=== PATIENT | female | born 1945 | race Caucasian/White ===

== ENCOUNTER → 2019-06-19 10:34 | Outpatient (CLI) | payer MEDICARE, SELFPAY ==
--- NOTE | ~2019-06-19 | XR_ITS ---
EXAMINATION: XR wrist LT min 3V DATE: 06/19/2019 10:51 INDICATION: Left wrist osteoarthritis. TECHNIQUE: 4 views of left wrist were obtained. COMPARISON: None. FINDINGS: Bone alignment is normal. No fracture. There is severe osteoarthritis of triscaphe joint an d moderate osteoarthritis of first carpometacarpal joint. There is severe osteoarthritis of lunate-ca pitate joint and scaphoid-capitate joint. Osteopenia is noted. IMPRESSION: 1. Polyarticular osteoarthritis. Reviewed, dictated and finalized at location A. 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
--- NOTE | ~2019-06-19 | XR_ITS ---
EXAMINATION: XR wrist RT min 3V DATE: 06/19/2019 10:52 INDICATION: Right wrist osteoarthritis. TECHNIQUE: 4 views of right wrist were obtained. COMPARISON: None. FINDINGS: Bone alignment is normal. No fracture. There is diffuse osteopenia. There is severe osteoar thritis of radiolunate joint, lunate-capitate joint, and lunate-hamate joint. There is moderate osteo arthritis of triscaphe joint and mild osteoarthritis of first carpometacarpal joint and first metacar pophalangeal joint. IMPRESSION: 1. Polyarticular osteoarthritis. Reviewed, dictated and finalized at location A. LOGY SPECIALIST
== END ==
PROVIDERS: PCP Internal Medicine; Visit Provider Plastic Surgery
DX: M19.031 Primary osteoarthritis, right wrist (principal); M19.032 Primary osteoarthritis, left wrist
CPT/HCPCS: 73110

== ENCOUNTER 2019-07-04 09:52 | Outpatient (CLI) | payer MEDICARE, SELFPAY ==
--- NOTE | ~2019-07-04 | XR_ITS ---
EXAMINATION: XR md joint inject/asp w image DATE: 07/04/2019 11:05 INDICATION: Osteoarthritis at the right wrist and carpus presenting with pain. TECHNIQUE: A time-out was performed to verify the patient's name, date of , and procedure to b e performed. The procedure including the risks, benefits, and alternatives was discussed with the pat ient. Risks discussed included bleeding and infection. The patient understood the risks and agreed to proceed. The skin overlying the dorsal aspect of the right wrist joint was prepped and draped in [facility] sterile fashion. Anesthetic was administered with 1% lidocaine subcutaneously. A 22 G needle wa s advanced under fluoroscopic guidance into the widened scapholunate articulation. Injection of 0.4 mL of Omnipaque 240 confirmed intra-articular position of the needle with contrast extending into bot h the wrist and mid carpal joint spaces. Subsequently, injectate consisting of 2 mL of 6 mg/mL betam ethasone for a total dosage of 12 mg of methadone was instilled. Washout of contrast was seen confirm ing intra-articular administration. The needle was removed and the entry site was cleaned and dressed . There were no immediate complications. Fluoroscopy exposure time was 0.3 minutes. The total number of images was 2. FINDINGS: Real-time fluoroscopy demonstrates the needle in the scapholunate articulation of the midca rpal joint with contrast extending into both the wrist and mid carpal joint spaces. Final image demon strates washout of now dilute contrast in both joint spaces along with widening of the joint spaces. Patient's pain prior to procedure:10/10. Patient's pain following the procedure: 8/10. IMPRESSION: 1. Right wrist injection of local anesthetic and steroid into the communicating right wrist and mid c arpal joint spaces. 2. Scapholunate advanced collapse (SLAC) wrist. Reviewed, dictated and finalized at location A. ON WARDEN IMPRESSION: 1. Right wrist injection of local anesthetic and steroid into the communicating right wrist and mid carpal joint spaces. 2. Scapholunate advanced collapse (SLAC) wrist.
== END 2019-07-04 09:53 | disposition home or self-care (01) ==
LOC: ANHIMG 09:53
PROVIDERS: PCP Internal Medicine; Visit Provider Plastic Surgery
DX: M19.031 Primary osteoarthritis, right wrist (principal)
CPT/HCPCS: 20605; 77002; J0702; Q9966

== ENCOUNTER 2019-10-24 00:17 | Outpatient (CLI) | payer MEDICARE, SELFPAY ==
[2019-10-24 18:58] LABS: SARS-CoV-2 RNA PCR Negative
== END 2019-10-24 00:18 | disposition home or self-care (01) ==
LOC: ANHCOVIDDT 00:17
PROVIDERS: Visit Provider Plastic Surgery
DX: Z01.812 Encounter for preprocedural laboratory examination (principal); Z20.828 Contact with and (suspected) exposure to other viral communicable diseases
CPT/HCPCS: 87635; C9803; U0003

== ENCOUNTER 2019-10-26 00:18 | Day surgery (SDC) | payer MEDICARE, SELFPAY ==
[2019-07-21 13:40] VITALS: BMI 21.2
--- NOTE | 2019-07-31 20:06 | HP_ITS ---
DATE OF SERVICE: 08/02/2019 PREOPERATIVE DIAGNOSIS: Left cubital tunnel syndrome. HISTORY: The patient has been followed since October of 2018 with variety of hand ailments. She has had some injections for 1st dorsal compartment and 1st CMC joint osteoarthritis and she has had some therapy at [facility]. On her 07/07/2019 visit, we elected to proceed with left cubital tunnel release. Her primary complaints on the last visit were that she had trouble doing daily tasks due to compression neuropathy. A nerve conduction test suggests that this could be carpal tunnel syndrome and possibly cubital tunnel syndrome and we are hoping today to correct a few more of her long-standing problems in her left upper extremity. ALLERGIES: ALENDRONATE, CIPROFLOXACIN, CODEINE, PROCAINE, SIMVASTATIN. CURRENT MEDICATIONS: Include levothyroxine and vitamin D3. PRIOR SURGERIES: Include an appendectomy in 66, tubal ligation in 72, salivary gland surgery in 89, mastectomy in 2013, left knee replaced in 2012. REVIEW OF SYSTEMS: Indicates a joint replacement, some facial palsy. FAMILY HISTORY: Noncontributory. SOCIAL HISTORY: She is a nonsmoker. She lives [place], she is retired. PHYSICAL EXAMINATION: VITAL SIGNS: She is a fairly 5 feet, weighs 134 pounds. HEENT: Unremarkable. CHEST: Clear to auscultation. HEART: Regular rate and rhythm by palpation. ABDOMEN: Soft, nontender. EXTREMITIES: Reveals marked Tinel's at the elbow. There is no interosseous wasting. She has trouble grasping and has trouble getting dressed. ASSESSMENT: Left cubital tunnel syndrome. PLAN: Left ulnar neuroplasty at the elbow under MAC anesthetic. D I MT: Tapan
--- NOTE | 2019-08-02 07:26 | WPDHPUPDATE1 ---
History and Physical Update Update Date/Time: 08/02/19 07:26 History and Physical has been reviewed, including an updated exam of the patient. There are NO changes in the patient's condition. Risks, benefits, and alternatives have been discussed and questions answered. Patient agrees to proceed with procedure.
[2019-09-28 08:35] VITALS: BMI 21.6
[2019-10-19 10:57] VITALS: BMI 21.9
--- NOTE | 2019-10-25 13:58 | HP_ITS ---
DATE OF SERVICE: 10/26/2019 PREOPERATIVE DIAGNOSIS: Left cubital tunnel syndrome. HISTORY: This 72-year-old female was evaluated in late May for painful swollen stiff wrist bilaterally. She has a long history of other complaints in her hands including trigger digits, carpal tunnel syndrome, and osteoarthritis. She has had a number of cortisone injections for these. She has a nerve conduction test by Dr. Peters from 11/29/2018, indicating left carpal tunnel syndrome and evolving left ulnar neuropathy at the elbow. X-ray of this wrist specifically revealed severe osteoarthritis of the lunocapitate joint and the scaphocapitate joint as well as the 1st CMC joint and triscaphe joint. Her most troublesome complaints in late May were the swelling, pain and stiffness in her wrists. The site not recommended for injection, but which we are operating today, is the cubital tunnel. Her surgery has been delayed by the COVID virus restrictions. She is aware that there will be an incision at her elbow, that recovery may come slowly in terms of hand function. Her elbow should do fairly well. Possible complications include infection, bruising, hematoma, very slow recovery, and anesthetic risks. She would like to proceed. ALLERGIES: SHE HAS KNOWN ALLERGIES TO ALENDRONATE, CIPROFLOXACIN, CODEINE, PROCAINE, AND SIMVASTATIN. CURRENT MEDICATIONS: Include levothyroxine and vitamin D3. PAST SURGICAL HISTORY: Include an appendectomy in 1966, tubal ligation in 1972, left salivary gland resection in 1996 or so, had a mastectomy around 2013, and a left knee replacement in 2012. She is not seeing any other specialists at this time. She is a nonsmoker. 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 FAMILY HISTORY: Noncontributory. SOCIAL HISTORY: She lives in [place] and she is retired. Her daughter brings her to the office. She is a patient of Koki Lyle and later Pardeep Gil. PHYSICAL EXAMINATION: VITAL SIGNS: 134 pounds and 5 feet tall I believe. GENERAL: She is in no apparent acute distress, although she has a lot of problems, and says they are quite painful at times. HEENT: Unremarkable. CHEST: Clear to auscultation. HEART: Regular rate and rhythm by palpation. ABDOMEN: Soft, nontender. EXTREMITY EXAM: Shows she has all 4 of her extremities. She uses all 4. She has lot of difficulty using her hands and she has arthritic deformity. DIAGNOSIS: The primary diagnosis today is left cubital tunnel syndrome. PLAN: Left ulnar neuroplasty at the elbow. D I MT: Tapan HAYWOOD
[2019-10-26 08:38] VITALS: BP 136/62; PULSE 71; RESP 20; TEMP 36.8; O2SAT 71
[2019-10-26] MEDS: LACTATED RINGERS 1,000 ML 30 ML IV CONT (09:00)
--- NOTE | 2019-10-26 09:04 | WPDANESEPPF ---
Anes - Initial Pre Proc Eval Procedure: Operation Date: 10/26/19 10:30 Proposed Procedures p Left Ulnar Neuroplasty At The Elbow - Dejuan Yang MD Date/Time: 10/26/19 09:04 Surgeon: Dejuan Yang MD Pre Op Diagnosis: Lesion Left Ulnar Nerve Patient Data Age: 73 Gender: F Height: 5 ft 2 in Weight: 54.7 kg Last Vital Signs Temp 36.8 C 10/26/19 08:38 Pulse 71 10/26/19 08:38 Resp 20 10/26/19 08:38 BP 136/62 10/26/19 08:38 Pulse Ox 71 L 10/26/19 08:38 Allergies Allergy/AdvReac Type Severity Reaction Status Date / Time procaine [From Novocain] Allergy Intermediate Headache Verified 10/19/19 10:55 codeine AdvReac Intermediate SPACY Verified 10/19/19 10:55 Home Medications Medication Instructions Recorded Confirmed Type levothyroxine 125 mcg tablet 125 mcg PO DAILY #90 tablet 07/20/19 10/17/19 Rx albuterol sulfate 2 puff INHALATION QID PRN 07/21/19 10/17/19 History eokzwtl-dibpdcgxsnacc-dmaqnzma 1 tablet PO Q4-6H PRN 09/28/19 10/17/19 History [Excedrin Extra Strength] cholecalciferol (vitamin D3) 50 mcg PO DAILY 09/28/19 10/17/19 History amlodipine 5 mg tablet 5 mg PO HS #90 tablet 10/17/19 10/19/19 Rx Patient hx anesthesia problems: none Family hx anesthesia problems: none PMFSH Past Medical History Medical History Arthritis COPD (chronic obstructive pulmonary disease) History of left breast cancer Hyperlipemia Hypothyroidism (acquired) Surgical History Surgical History H/O arthroscopy of left knee H/O mastectomy History of appendectomy History of carotid endarterectomy History of tubal ligation Family History Family History Mother , Age 97 - Old Age No problems noted. Father , Age 67 of Unknown Cancer No problems noted. Social History Social History Smoking packs per day: 0.5 Smoking cigarettes per day: 10.0 Years smoked: 50 Smoking pack-years: 25.00 Smoking status: Current every day smoker Tobacco type: cigarettes (per pt, a pack of cigs last 3-4 days) Second hand tobacco smoke exposure: No Alcohol intake: never Gender identity (if verbalized by the patient): Female Anes - Eval Final PreProcedure Day of Procedure 10/26/19 09:04 Patient weight: normal Heart: regular rate and rhythm Lungs: decreased breath sounds Airway: Mallampati scale class II Neurological: other (alert) Last oral intake: >/= 8 hours ASA classification: III Emergent: no Anesthetic plan: proceed Anesthesia type and monitoring: general GIVS and standard monitoring Informed Consent: The patient's anesthetic plan and its attendant risks and benefits were discussed with the patient/family/POA. Questions were solicited and answers provided to the satisfaction of the patient/family/POA.
--- NOTE | 2019-10-26 09:20 | SUR.PREOP ---
0915-SPOKE WITH DAUGHTER TO INFORM HER DR. MASTERS WAS DELAYED ~1 HOUR R/T EMERGENT CASE.
--- NOTE | 2019-10-26 11:15 | SUR.PREOP ---
1115-DAUGHTER NOTIFIED PER VOICEMAIL THAT PT IS BEING TAKEN TO SURGERY NOW.
[2019-10-26] MEDS: BACITRACIN OINTMENT 15 GM TUBE 1 APPLIC TOPICAL (11:18)
[2019-10-26] MEDS: LIDO 1%/EPINEPHRINE 1:100,000 20 ML VIAL 6 ML INFILTRATE (11:18)
--- NOTE | 2019-10-26 11:59 | SUR.OPER ---
EBL:0cc
--- NOTE | 2019-10-26 12:07 | PM.OP ---
Procedure Note - Brief Procedure Note - Brief Date of procedure: 10/26/19 Pre-op diagnosis: Lesion Left Ulnar Nerve Left ulnar compression neuropathy Post-op diagnosis: same Procedure performed: Left ulnar neuroplasty. Anesthesia: MAC Surgeon: Dejuan Yang MD Estimated blood loss (mL): 3 Tourniquet time (min): 20 Drains: No Packing: No Pathology: none sent Complications: No immediate complications Condition: stable Disposition: same day
[2019-10-26 12:30] VITALS: BP 159/72; PULSE 65; RESP 20
--- NOTE | 2019-10-26 13:44 | PM.PROC ---
Procedure Note - Detailed Date of procedure: 10/26/19 Pre-op diagnosis: Lesion Left Ulnar Nerve Left ulnar nerve compression at the elbow Post-op diagnosis: same Procedure performed: Left ulnar neuroplasty at the elbow Description of procedure: The appropriate elbow was marked on the patient as she waited in the holding area. Patient was taken to the operating room where she was placed supine on the operating table. Time-out was held confirmed. She was given IV sedation and the extremity was prepped and draped in usual fashion. The markings reconfirmed on her elbow and the site locally infiltrated with 1% lidocaine with epinephrine. The tourniquet was inflated to 250 mmHg. The incision was made as marked and dissection was carried carefully through the subcutaneous tissue to the ulnar nerve which was identified just posterior to the medial epicondyle. The triceps muscle was not thickened. The sheath was opened over the nerve and the nerve was released throughout the length of our operative field. This included division of Spring ligament. No other points of compression were identified. The nerve did not sublux. The wound was closed with intradermal 3 -0 Monocryl and a running intradermal 3-0 Monocryl. A soft flexible bandage was applied and she is discharged from the operating room stable condition. She has a prescription for tramadol. She has instructions in wound care and follow-up Surgeon: Dejuan Yang MD
== END 2019-10-26 12:56 | disposition home or self-care (01) ==
PROVIDERS: PCP Internal Medicine; Visit Provider Plastic Surgery
PROC: (CPT 64718; principal; 2019-10-26 10:30)
DX: G56.22 Lesion of ulnar nerve, left upper limb (principal); M19.032 Primary osteoarthritis, left wrist; M18.9 Osteoarthritis of first carpometacarpal joint, unspecified; J44.9 Chronic obstructive pulmonary disease, unspecified; E03.9 Hypothyroidism, unspecified; E78.5 Hyperlipidemia, unspecified; F17.210 Nicotine dependence, cigarettes, uncomplicated; Z85.3 Personal history of malignant neoplasm of breast; Z90.10 Acquired absence of unspecified breast and nipple; Z96.652 Presence of left artificial knee joint
CPT/HCPCS: 64718; A9270; J2704; J3010; J7120

== ENCOUNTER 2019-12-07 22:43 | Emergency (ER) | payer MEDICARE, SELFPAY ==
--- NOTE | ~2019-12-07 | CT_ITS ---
EXAMINATION: CT wrist LT wo con DATE: 12/08/2019 00:18 INDICATION: Left wrist pain. Injury. TECHNIQUE: Computed tomography (CT) of the left wrist was performed without intravenous contrast. Aut omated exposure control and iterative reconstruction technique were employed. The dose-length product was 295.63 mGy-cm. COMPARISON: Left wrist radiographs 12/07/2019, 06/19/2019 FINDINGS: Bone alignment is normal. No fracture. There is joint space loss throughout the carpus. The re are extensive erosions involving the midcarpal compartment and first carpometacarpal joint. There are fusions of the radiocarpal and midcarpal compartments and first carpometacarpal joint. IMPRESSION: 1. No fracture. 2. Worsened severe arthritis, consistent with inflammatory arthropathy such as rheumatoid arthritis, septic arthritis, or gout superimposed on osteoarthritis. Reviewed, dictated and finalized at location A.
--- NOTE | ~2019-12-07 | XR_ITS ---
EXAMINATION: XR wrist LT min 3V DATE: 12/07/2019 23:37 INDICATION: Left wrist pain TECHNIQUE: Posteroanterior, ulnar deviation, oblique, and lateral views of the left wrist were obtain ed. COMPARISON: 06/19/2019 FINDINGS: The bones are osteopenic which limits the sensitivity for fracture however none is seen. Ag ain noted is severe osteoarthritis of the triscaphe, lunocapitate, and scaphocapitate joints. There i s severe osteoarthritis at the first carpometacarpal joint with interval worsening. Bone alignment is normal. IMPRESSION: 1. Polyarticular osteoarthritis without acute osseous abnormality, sensitivity limited by osteopenia. Reviewed, dictated and finalized at location A.
--- NOTE | ~2019-12-07 | CT_ITS ---
EXAMINATION: CT brain wo con INDICATION: Head injury COMPARISON: None TECHNIQUE: Standard unenhanced head CT. The dose-length product (DLP) was 605.33 mGy-cm. The mA was a djusted according to patient size. Iterative reconstruction technique was employed. FINDINGS: There is no acute intraparenchymal hemorrhage. No evidence of mass lesion. No evidence of a cute infarction. There is mild periventricular and subcortical hypodensity probably related to small vessel ischemic disease. There is mild prominence of the sulci and ventricles related to cerebral atr ophy. Intracranial calcified cerebral atherosclerosis is noted. There are no extra-axial collections. There is no mass effect or midline shift. The orbits and soft tissues are unremarkable. There is a left mastoid effusion. IMPRESSION: 1. No acute intracranial abnormality. 2. Age related findings. Reviewed, dictated and finalized at location A.
[2019-12-07 22:46] VITALS: BP 156/85; PULSE 68; RESP 14; TEMP 36.4; O2SAT 98
--- NOTE | 2019-12-08 00:15 | ED.FALL ---
HPI - Fall General Chief Complaint: Fall Stated Complaint: Fall, HI Time Seen by Provider: 12/07/19 22:56 History of Present Illness HPI Narrative: Patient is a 74-year-old female who presents ER after falling and striking her head. Patient was bending over to check on some smalls in her garden when she stepped on something hard, she believes it was a walnut, and she fell forward striking her head. She did not lose consciousness. She did fall on her outstretched left arm. She has some pain in her left wrist with some mild tingling into her pinky finger. She additionally reports that she has developed frontal headache with nausea that waxes and wanes in intensity. She is not on any blood thinners. No neck pain. Related Data Home Medications Medication Instructions Recorded Confirmed albuterol sulfate 2 puff INHALATION QID PRN 07/21/19 10/26/19 yxfsclx-hfyplxngwkquu-ieheqlij 1 tablet PO Q4-6H PRN 09/28/19 10/26/19 [Excedrin Extra Strength] cholecalciferol (vitamin D3) 50 mcg PO DAILY 09/28/19 10/26/19 Allergies Allergy/AdvReac Type Severity Reaction Status Date / Time codeine AdvReac Severe UNABLE TO Verified 10/26/19 09:09 MOVE/FUNCTION procaine [From Novocain] AdvReac Severe SEVERE Verified 10/26/19 09:09 HEADACHE Review of Systems Review of Systems: All systems reviewed & are unremarkable except as noted in HPI and below Eyes: Eyes: Denies change in vision Gastrointestinal: Gastrointestinal: Reports nausea and Denies vomiting Musculoskeletal: Musculoskeletal: Reports arthralgias and Denies joint swelling Neurologic: Denies syncope, Reports headache(s), Denies focal weakness and Reports numbness PMFSH Social History Social History Smoking packs per day: 0.5 Smoking cigarettes per day: 10.0 Years smoked: 50 Smoking pack-years: 25.00 Smoking status: Current every day smoker Tobacco type: cigarettes (per pt, a pack of cigs last 3-4 days) Second hand tobacco smoke exposure: No Alcohol intake: never Gender identity (if verbalized by the patient): Female Exam Narrative: Exam Narrative: GENERAL: Well-appearing, well-nourished, and in no acute distress. HEAD: Normocephalic, atraumatic. EYES: PERRL and EOMI. NECK: Supple. No midline tenderness of the cervical spine with range of motion back. CHEST: Clear to auscultation. No respiratory distress. HEART: Regular rate and rhythm. Normal peripheral pulses. EXTREMITIES: Normal range of motion. Tender palpation over the dorsal aspect of the wrist without bruising or swelling. Neurovascular intact. SKIN: Warm, dry, no rash. NEURO: No focal deficits. Alert and oriented x3. Course Course Emergency Course: Informed of results. Patient has a cock-up wrist splint at home that she can use. Vital Signs Vital signs: Vital Signs Temperature 97.6 F 12/07/19 22:46 Pulse Rate 68 12/07/19 22:46 Respiratory Rate 14 12/07/19 22:46 Blood Pressure 156/85 H 12/07/19 22:46 Pulse Oximetry 98 12/07/19 22:46 Temperature 97.6 F 12/07/19 22:46 Pulse Rate 68 12/07/19 22:46 Respiratory Rate 14 12/07/19 22:46 Blood Pressure 156/85 H 12/07/19 22:46 Pulse Oximetry 98 12/07/19 22:46 MDM - Fall Imaging Data Radiologist's impression: ITS Impressions Head CT 12/07/19 23:31 IMPRESSION: 1. No acute intracranial abnormality. 2. Age related findings. Wrist X-Ray 12/07/19 23:38 IMPRESSION: 1. Polyarticular osteoarthritis without acute osseous abnormality, sensitivity limited by osteopenia. CT of the wrist: No acute fracture. Discharge Plan Discharge Clinical Impression: Concussion, Left wrist sprain Patient Disposition: Home, Self-Care Condition: Stable Instructions: Concussion (ED), Wrist Sprain (ED) Additional Instructions: Return the ER if you have chest pain or shortness of breath, cannot keep down food or water, you
[2019-12-08 01:28] VITALS: BP 149/84; PULSE 65; RESP 16; TEMP 36.6; O2SAT 97
== END 2019-12-08 01:28 | disposition home or self-care (01) ==
PROVIDERS: Emergency Provider Emergency Medicine; PCP Internal Medicine
DX: S06.0X0A Concussion without loss of consciousness, initial encounter (principal); S63.502A Unspecified sprain of left wrist, initial encounter; Z79.82 Long term (current) use of aspirin; F17.210 Nicotine dependence, cigarettes, uncomplicated; M19.032 Primary osteoarthritis, left wrist; W18.09XA Striking against other object with subsequent fall, initial encounter
CPT/HCPCS: 70450; 73110; 73200; 99284

== ENCOUNTER → 2020-02-14 13:10 | Outpatient (CLI) | payer MEDICARE, SELFPAY ==
--- NOTE | ~2020-02-14 | MM_ITS ---
EXAMINATION: MM screening papa RT w brooks HISTORY: Screening right mammogram, history of left mastectomy TECHNIQUE: Craniocaudal and mediolateral oblique 3-D tomosynthesis images were obtained and synthetic 2-D images were generated. CAD analysis was submitted and interpreted. COMPARISON: No prior mammogram is available for comparison at this institution. BREAST PARENCHYMAL COMPOSITION: There are scattered areas of fibroglandular density. FINDINGS: A subareolar asymmetry of the right breast on the craniocaudal view appears to be related t o the skin. There is no evidence of suspicious mass, calcification, or architectural distortion to sims ggest malignancy in either breast. IMPRESSION: 1. No mammographic evidence of malignancy. 2. Recommend routine screening mammography in one year. BI-RADS Category 2: Benign finding(s). Reviewed, dictated and finalized at location A.
== END ==
PROVIDERS: Visit Provider Internal Medicine
DX: Z12.31 Encounter for screening mammogram for malignant neoplasm of breast (principal)
CPT/HCPCS: 77063; 77067

== ENCOUNTER → 2020-07-12 14:08 | Outpatient (CLI) | payer MEDICARE, SELFPAY ==
--- NOTE | ~2020-07-12 | XR_ITS ---
EXAMINATION: XR knee LT min 4V DATE: 07/12/2020 14:26 INDICATION: Left knee pain. TECHNIQUE: 4 views of left knee were obtained. COMPARISON: None. FINDINGS: There is a total left knee arthroplasty. Tibia demonstrate 8 degrees posterior angulation w ith respect to the tibial component. There is a 6 mm gap between the distal femur and the femoral com ponent anteriorly on the lateral view. There is a small knee joint effusion. IMPRESSION: 1. Total left knee arthroplasty with gap between the distal femur and femoral component anteriorly. T his finding may be seen with loosening or infection. Comparison with postoperative radiographs is rec ommended. 2. Small left knee joint effusion. Reviewed, dictated and finalized at location A. NEL TURNER IMPRESSION: 1. Total left knee arthroplasty with gap between the distal femur and femoral c omponent anteriorly. This finding may be seen with loosening or infection. Comp arison with postoperative radiographs is recommended. 2. Small left knee joint effusion.
== END ==
PROVIDERS: PCP Internal Medicine; Visit Provider Internal Medicine
DX: M25.462 Effusion, left knee (principal)
CPT/HCPCS: 73564

== ENCOUNTER 2020-08-23 08:27 | Outpatient (CLI) | payer MEDICARE, SELFPAY ==
--- NOTE | ~2020-08-23 | NM_ITS ---
EXAMINATION: NM bone 3 phase DATE: 08/23/2020 12:26 INDICATION: Left knee pain post left total knee arthroplasty. TECHNIQUE: 25.3 mCi Tc-99m HDP by intravenous route. Scintigrams of the bilateral knees were obtaine d in angiographic, blood pool, and delayed phases. COMPARISON: Left knee radiographs dated 07/12/2020 FINDINGS: Photopenic defect at the left knee corresponding to a total knee arthroplasty. Inflammation with foca l increased soft tissue uptake on the angiographic an immediate blood pool images at the lateral aspe ct of the left knee. There is more uniform mild increased delayed bone uptake along the margins of al l 3 components of the left total knee arthroplasty. The degree of uptake would be within normal limit s post relatively recent arthroplasty with mention made of prior left knee arthroscopy but not of a t otal knee arthroplasty on clinic note dated 12/18/2019 . There does not appear to be focally increased uptake at the lateral aspect of the left knee in the region of the increased uptake on the earlier an giographic and blood pool phases suggesting this is soft tissue related. Delayed uptake is seen at th e medial compartment of the right knee without corresponding increased activity on the angiographic a nd blood pool images suggests this is most likely related to osteoarthritis. IMPRESSION: 1. Focal increased likely inflammatory soft tissue uptake at the lateral aspect of the left knee on the angiographic an immediate blood pool images without corresponding focally increased bone activity on the delayed images which is of indeterminate etiology. 2. Increased delayed bone uptake in the left knee which appears relatively uniform along the margins of all 3 components of the left total knee arthroplasty which is within normal limits within the firs t year post arthroplasty placement. Reviewed, dictated and finalized at location B. IMPRESSION: 1. Focal increased likely inflammatory soft tissue uptake at the lateral aspec t of the left knee on the angiographic an immediate blood pool images without c orresponding focally increased bone activity on the delayed images which is of indeterminate etiology. 2. Increased delayed bone uptake in the left knee which appears relatively unif orm along the margins of all 3 components of the left total knee arthroplasty w hich is within normal limits within the first year post arthroplasty placement.
== END 2020-08-23 08:28 | disposition home or self-care (01) ==
PROVIDERS: PCP Internal Medicine; Visit Provider Internal Medicine
DX: Z96.652 Presence of left artificial knee joint (principal)
CPT/HCPCS: 78315; A9561

== ENCOUNTER 2020-11-25 19:25 | Emergency (ER) | payer MEDICARE, SELFPAY ==
[2020-11-25 20:14] VITALS: BP 119/46; PULSE 101; RESP 20; TEMP 37.3; O2SAT 100
[2020-11-25 22:46] VITALS: BP 111/61; O2SAT 98
[2020-11-25] MEDS: FLUCONAZOLE 150 MG TABLET PO (23:01)
[2020-11-25] MEDS: predniSONE 20 MG TABLET 60 MG PO (23:02)
[2020-11-25] MEDS: LORATADINE 10 MG TABLET PO (23:09)
[2020-11-26 00:18] VITALS: BP 96/49; PULSE 92; RESP 18; O2SAT 95
--- NOTE | 2020-11-26 01:14 | ED.GENADULT ---
HPI - General Adult General Chief complaint: Skin/Abscess/Foreign Body Stated complaint: Rash all over Time Seen by Provider: 11/25/20 22:47 Source: patient and family Mode of arrival: ambulatory Limitations: no limitations History of Present Illness HPI narrative: Patient is 75 years old white female presents with itching rash started 2 to 4 days ago. Patient had a PICC line for the last 5 weeks, been on vancomycin IV daily for post left knee replacement infection. Patient complaining also of vaginal itching with white discharge consistent with her similar history of yeast infection, the medication was started by Dr. Broussard/infectious disease at [facility]. Patient denies any new in her life in the last 6 weeks. Patient had history of allergy to different staff. Patient believes that the vancomycin is high likely the underlying cause of her allergy. Patient denies any shortness of breath, chest pain or back pain. Related Data Home Medications Medication Instructions Recorded Confirmed albuterol sulfate 2 puff INHALATION QID PRN 07/21/19 11/04/20 [id number] 1 tablet PO Q4-6H PRN 09/28/19 11/04/20 [Excedrin Extra Strength] cholecalciferol (vitamin D3) 50 mcg PO DAILY 09/28/19 11/04/20 cholecalciferol (vitamin D3) 25 25 mcg PO DAILY 09/18/20 11/04/20 mcg (1,000 unit) capsule ascorbic acid (vitamin C) 500 mg 500 mg PO DAILY 11/04/20 chewable tablet aspirin 325 mg tablet 325 mg PO BID 11/04/20 celecoxib 200 mg capsule 200 mg PO BID 11/04/20 ferrous sulfate 325 mg (65 mg 325 mg PO DAILY 11/04/20 iron) tablet hydrocodone 5 mg-acetaminophen 325 1 tablet PO Q4H PRN 11/04/20 mg tablet Allergies Allergy/AdvReac Type Severity Reaction Status Date / Time codeine AdvReac Severe UNABLE TO Verified 11/25/20 21:53 MOVE/FUNCTION procaine [From Novocain] AdvReac Severe SEVERE Verified 11/25/20 21:53 HEADACHE Review of Systems Review of Systems: Narrative: CONSTITUTIONAL: Denies fever, chills, or sweats. EYES: Denies visual changes, redness, or discharge. ENT: Denies rhinorrhea, congestion, sore throat, or otalgia. CARDIOVASCULAR: Denies chest pain, palpitations, or edema. RESPIRATORY: Denies cough or dyspnea. GASTROINTESTINAL: Denies abdominal pain, nausea, vomiting, or diarrhea. GENITOURINARY: Denies dysuria or hematuria. SKIN: Itching rash MUSCULOSKELETAL: Denies back pain, joint pain, or myalgia. NEUROLOGIC: Denies headache, numbness, or weakness. PSYCHIATRIC: Denies anxiety or depression. PMFSH Past Medical History Medical History Arthritis COPD (chronic obstructive pulmonary disease) History of left breast cancer Hyperlipemia Hypothyroidism (acquired) Surgical History Surgical History H/O arthroscopy of left knee H/O mastectomy History of appendectomy History of carotid endarterectomy History of tubal ligation Family History Family History Mother , Age 97 - Old Age No problems noted. Father , Age 67 of Unknown Cancer No problems noted. Social History Social History Smoking packs per day: 0.5 Smoking cigarettes per day: 10.0 Years smoked: 50 Smoking pack-years: 25.00 Smoking status: Current every day smoker Tobacco type: cigarettes (per pt, a pack of cigs last 3-4 days) Second hand tobacco smoke exposure: No Alcohol intake: never Gender identity (if verbalized by the patient): Female Exam Narrative: Exam Narrative: General appearance: Well-developed, well-nourished Skin: Scattered hives, maculopapular rash all over Head: Normocephalic, nontraumatic Eyes: Clear conjunctiva ENT: Oropharynx normal, ears normal, nose normal Neck: Supple, nontender Chest and respiratory: Airway p
[2020-11-26 02:02] VITALS: BP 117/51; PULSE 88; RESP 20; O2SAT 98
== END 2020-11-26 02:06 | disposition home or self-care (01) ==
PROVIDERS: Emergency Provider Emergency Medicine; PCP Internal Medicine
DX: R21 Rash and other nonspecific skin eruption (principal); T36.8X5A Adverse effect of other systemic antibiotics, initial encounter; I10 Essential (primary) hypertension; J44.9 Chronic obstructive pulmonary disease, unspecified; E03.9 Hypothyroidism, unspecified; F17.210 Nicotine dependence, cigarettes, uncomplicated; Z79.82 Long term (current) use of aspirin; Z79.891 Long term (current) use of opiate analgesic
CPT/HCPCS: 99283; A9270; J7512

== ENCOUNTER 2020-11-28 16:15 | Inpatient (IN) | payer MEDICARE, SELFPAY ==
[2020-11-28] VITALS (28 sets, daily range): BP systolic 97–130; BP diastolic 59–101; PULSE 70–93; RESP 15–33; TEMP 36.5; O2SAT 98–100
--- NOTE | ~2020-11-28 | US_ITS ---
EXAMINATION: US renal BI DATE: 11/30/2020 09:16 INDICATION: Acute renal insufficiency TECHNIQUE: Multiple ultrasound grayscale images of the kidneys were obtained. COMPARISON: None. FINDINGS: The right kidney measures 13.0 x 5.6 x 4.9 cm. The left kidney measures 9.2 x 4.8 x 4.5 cm. The kidne ys demonstrate normal echogenicity. 6.6 cm anechoic cyst arising from the upper pole of the right kid johan. 1.4 cm exophytic cyst at the lower pole of the left kidney. There is no hydronephrosis in either kidney. No stones identified. The bladder is normal. IMPRESSION: 1. Bilateral renal cysts. Otherwise normal kidneys without hydronephrosis. Reviewed, dictated and finalized at location A.
--- NOTE | ~2020-11-28 | XR_ITS ---
EXAMINATION: XR chest 1V portable DATE: 11/28/2020 17:23 INDICATION: Weakness. Rash over the body post vancomycin. TECHNIQUE: frontal view of the chest was obtained. COMPARISON: Chest radiograph and CT dated 03/27/2019 FINDINGS: The lungs remain clear with no focal airspace opacities, pulmonary edema, pleural effusion or pneumot horax. The cardiomediastinal silhouette is normal. Mild S-shaped thoracic scoliosis with mild spondyl osis. IMPRESSION: 1. No acute cardiopulmonary disease. Reviewed, dictated and finalized at location A.
--- NOTE | 2020-11-28 18:03 | PC.NURSE ---
Pt attempted to provide urine sample and was unsuccessful. Pt refusing straight cath at this time
[2020-11-28 18:24] LABS: Basophils Absolute Auto 0.1 K/mm3 (0.0-0.1); Basophils Percent Auto 0.3 % (0.2-1.2); Eosinophils Percent Auto 15.1 % (0-4.4); Hematocrit 34.6 % (37.0-47.0); Hemoglobin 10.3 g/dL (12.0-15.0); Immature Granulocyte Absolute 0.31 K/mm3 (0.00-0.031); Immature Granulocyte Percent A 1.2 % (0-0.5); Lymphocytes Absolute Auto 1.39 K/mm3 (0.9-3.2); Lymphocytes Percent Auto 5.2 % (18.3-44.2); Mean Corpuscular HGB Conc 29.8 g/dl (32-36); Mean Corpuscular Hemoglobin 25.2 pg (26-34); Mean Corpuscular Volume 84.6 fl (80-100); Mean Platelet Volume 9.9 fl (7.4-10.4); Monocytes Absolute Auto 0.3 K/mm3 (0.1-0.6); Neutrophils Absolute Auto 20.5 K/mm3 (1.3-6.7); Neutrophils Percent Auto 77.2 % (45.5-73.1); Platelet Count Result 481 k/mm3 (150-375); Red Blood Count 4.09 M/mm3 (4.2-5.4); Red Cell Distribution Width 15.5 % (11.5-14.5); White Blood Count 26.5 K/mm3 (4.5-10.0)
[2020-11-28 18:29] LABS: Alanine Aminotransferase 18 U/L (4-35); Albumin Level 3.5 g/dL (3.5-5.1); Alkaline Phosphatase 115 U/L (38-126); Anion Gap 12 mmol/L (8-16); Aspartate Amino Transferase 25 U/L (14-36); Bilirubin,Total < 0.1 mg/dL (0.2-1.3); Blood Urea Nitrogen 66 mg/dL (7-17); Calcium 9.2 mg/dL (8.4-10.2); Carbon Dioxide 15 mmol/L (22-30); Chloride 106 mmol/L (98-107); Estimated CRCL calculation 18 ml/min; Estimated Glomerular Filt Rate 26; Glucose 114 mg/dL (65-105); Potassium 4.9 mmol/L (3.4-5.0); Sodium 133 mmol/L (137-145)
[2020-11-28 18:53] LABS: CRP 2.4 mg/dL (<1.0)
--- NOTE | 2020-11-28 19:15 | PC.NURSE ---
Pt requesting medication for itching. ERPA made aware.
--- NOTE | 2020-11-28 19:30 | ED.GENADULT ---
HPI - General Adult General Chief complaint: Weakness <JOE Moreno - Last Filed: 11/29/20 01:45> Stated complaint: Possible Dehydration <JOE Moreno - Last Filed: 11/29/20 01:45> Time Seen by Provider: 11/28/20 16:41 <JOE Moreno - Last Filed: 11/29/20 01:45> Source: patient <JOE Moreno - Last Filed: 11/29/20 01:45> Mode of arrival: wheelchair <JOE Moreno - Last Filed: 11/29/20 01:45> Limitations: no limitations <JOE Moreno - Last Filed: 11/29/20 01:45> History of Present Illness HPI narrative: Patient is a 75 year old female who presents complaining of pruritic rash and mouth pain. She reports she has not been eating or drinking because my mouth hurts . She was seen and treated on Wednesday with probable drug reaction rash and started on Prednisone and Zyrtec. She reports limited relief of itching, rash continues. She is also reporting shortness of breath x 1 day. Patient reports history of septic knee with prothesis. Patient reports surgery on 10/21/20. Patient reports being started on Vancomycin thru PICC line. Patient reports rash started on Wednesday after dose of vancomycin. She reports vancomycin stopped by Dr. Foreman and patient started on doxycycline. <JOE Moreno - Last Filed: 11/29/20 01:45> Related Data Home medications: Home Medications Medication Instructions Recorded Confirmed albuterol sulfate 2 puff INHALATION QID PRN 07/21/19 11/04/20 [id number] 1 tablet PO Q4-6H PRN 09/28/19 11/04/20 [Excedrin Extra Strength] cholecalciferol (vitamin D3) 50 mcg PO DAILY 09/28/19 11/04/20 cholecalciferol (vitamin D3) 25 25 mcg PO DAILY 09/18/20 11/04/20 mcg (1,000 unit) capsule ascorbic acid (vitamin C) 500 mg 500 mg PO DAILY 11/04/20 chewable tablet aspirin 325 mg tablet 325 mg PO BID 11/04/20 celecoxib 200 mg capsule 200 mg PO BID 11/04/20 ferrous sulfate 325 mg (65 mg 325 mg PO DAILY 11/04/20 iron) tablet hydrocodone 5 mg-acetaminophen 325 1 tablet PO Q4H PRN 11/04/20 mg tablet doxycycline hyclate 11/28/20 <JOE Moreno - Last Filed: 11/29/20 01:45> Allergies/adverse reactions: Allergies Allergy/AdvReac Type Severity Reaction Status Date / Time codeine AdvReac Severe UNABLE TO Verified 11/28/20 16:52 MOVE/FUNCTION procaine [From Novocain] AdvReac Severe SEVERE Verified 11/28/20 16:52 HEADACHE <JOE Moreno - Last Filed: 11/29/20 01:45> Review of Systems Review of Systems: Narrative: CONSTITUTIONAL: Denies fever, chills, or sweats. EYES: Denies visual changes, redness, or discharge. ENT: Denies rhinorrhea, congestion, sore throat, or otalgia. Reports mouth pain CARDIOVASCULAR: Denies chest pain, palpitations, or edema. RESPIRATORY: Denies cough, reports shortness of breath. GASTROINTESTINAL: Denies abdominal pain, nausea, vomiting, or diarrhea. GENITOURINARY: Denies dysuria or hematuria. SKIN: Reports rash or itching. MUSCULOSKELETAL: Denies back pain, reports left knee tenderness NEUROLOGIC: Denies headache, numbness, dizziness, or weakness. PSYCHIATRIC: Denies anxiety or depression. <JOE Moreno - Last Filed: 11/29/20 01:45> [facility] Past Medical History Medical History: Medical History (Updated 11/28/20 @ 21:49 by Dejuan Beltran DO) Arthritis COPD (chronic obstructive pulmonary disease) History of left breast cancer Hyperlipemia Hypothyroidism (acquired) <JOE Moreno - Last Filed: 11/29/20 01:45> Surgical History Surgical History: Surgical History H/O arthroscopy of left knee H/O mastectomy History of appendectomy History of carotid endarterectomy History of tubal ligation <JOE Moreno - Last Filed: 11/29/20 01:45> Family History Family History: Family History (Reviewed 11/28/20 @ 19:43 by Melani Peña
[2020-11-28] MEDS: diphenhydrAMINE HCl INJ 50 MG/ML VIAL 25 MG IV PUSH (19:35)
[2020-11-28] MEDS: SODIUM CHLORIDE 0.9% IV 1,000 ML 999 ML IV CONT ×2 (20:02→23:07)
[2020-11-28 20:22] LABS: INR 1.2; Lactic Acid Reflex 1.8 mmol/L (0.7-2.1); Prothrombin Time 15.3 Seconds (11.1-14.7)
--- NOTE | 2020-11-28 20:28 | PC.NURSE ---
Pt reports itching has not improved with Benadryl. Dr. Beltran made aware.
[2020-11-28 20:43] LABS: Erythrocyte Sedimentation Rate 21 mm/hr (0-20)
--- NOTE | 2020-11-28 20:53 | PC.NURSE ---
Spoke with [facility] transfer line; pt has been accepted but no beds available at this time. Requesting COVID test be done. Dr. Beltran made aware.
[2020-11-28] MEDS: LORATADINE 10 MG TABLET PO (21:04)
[2020-11-28] MEDS: SODIUM CHLORIDE 0.9% IV 1,000 ML 80 ML IV CONT (21:05)
[2020-11-28] MEDS: DOXYCYCLINE HYCLATE 100 MG TABLET PO (21:46)
--- NOTE | 2020-11-28 22:17 | PC.NURSE ---
Pt resting on stretcher. Still unable to provide urine sample. [facility] reports long delay in bed for admission. Pt provided hospital bed for comfort.
[2020-11-28 22:21] LABS: EDCOVIDSCREEN Negative (Negative)
[2020-11-28 23:22] LABS: Add Urine Microscopic? YES; Appearance Urine Cloudy (Clear); Bacteria Urine Trace /hpf; Bilirubin Urine Negative (Negative); Blood Urine Negative (Negative); Color Urine Yellow (Yellow); Glucose Urine UA Negative (Negative); Ketones Urine Negative (Negative); Leukocyte Esterase Ur 3+ LEU/UL (Negative); Mucus Urine Rare /lpf; Nitrate Urine Negative (Negative); Protein Urine 1+ mg/dL (Negative); Specific Grav Ur 1.018 (1.001-1.035); Squamous Epithelial Cell Urine Many /hpf (Few); Urobilinogen Urine Negative mg/dL (<2.0)
[2020-11-29] VITALS (10 sets, daily range): BP systolic 113–133; BP diastolic 50–60; PULSE 69–81; RESP 14–22; TEMP 36.4–36.7; O2SAT 91–100; BMI 20.1
--- NOTE | 2020-11-29 05:02 | PC.NURSE ---
0440: SPOKE TO MEGAN AT [facility]...THERE IS AT LEAST A 2 DAY WAIT FOR FLOOR BEDS AT [place].
--- NOTE | 2020-11-29 06:44 | ADMGEN ---
This patient, Angy Costa, was admitted to [facility] Surg Room 302-01. Patient/family oriented to hospital policies and general routines including ID bracelet, bed and alarms, visiting hours, pain management, procedures, bathroom and other care routines, personal items, smoking policy, room service/diet, and visiting hours. Information on how to activate the Rapid Response Team has been discussed. Patient/Family are encouraged to report perceived risks to care and to ask questions if they do not understand what they are told or what they should do.
[2020-11-29] MEDS: methylPREDNISolone SOD SUCC 40 MG VIAL 60 MG IV PUSH (07:03)
[2020-11-29] MEDS: SODIUM CHLORIDE 0.9% IV 1,000 ML 80 ML IV CONT (08:51)
[2020-11-29] MEDS: DOXYCYCLINE HYCLATE 100 MG TABLET PO ×2 (08:58→20:28)
[2020-11-29] MEDS: DIPHENHYDRAMINE 1%/ZINC 0.1% CREAM 30 GM TUBE 1 APPLIC TOPICAL ×3 (11:16→22:08)
--- NOTE | 2020-11-29 12:50 | PCNSR ---
On 11/29/20, the student,Yola Swenson, provided care and completed [facility] documentation on this patient. I have reviewed the student's documentation and agree with the findings.
--- NOTE | 2020-11-29 13:44 | PM.IMHP ---
H&P: HPI History of Present Illness Date/Time: 11/29/20 13:44 Chief Complaint: pruritic rash and mouth pain Narrative: 75yo female COPD and hypothyroidism here for pruritic rash and mouth pain from potential drug reaction. She was hospitalized on 10/21/20 at [facility] for left knee prosthetic septic arthritis. The prosthetic was removed and spacer placed. Cultures were negative. She was discharged home on Vancomycin IV vis PICC line for planned 6 weeks. She wsa doing well and saw her doctor one week ago who was pleased with her progress and felt she could stop the Vancomycin on 12/05. She has been receiving the Vanco daily. On 11/24, the patient developed rash on her back. The following day after her Vancomycin dose, she developed more of a diffuse rash. She presented to the ED later that evening and was noted to have scattered hives and maculopapular rash all over . Also was complaining about vaginal symptoms and found to have vaginal yeast infection. She has not been having and mouth, lip, tongue or throat swelling. Her mouth feels sore and dry but no open sores. She odes have a chronic dry mouth but worse past week. Eyes feel dry. She was treated with Diflucan x1, Prednisone and Zyrtec. She called her doctor on 11/26 and Vacno was stopped and PICC line removed. She was started on Doxycycline but otherwise has not had any new medications. She has not been eating much because of the sore mouth. She has been taking protein shakes daily. Urine output has been decreased. No dysuria or hematuria. Vaginal symptoms have resolved. No chest pain or shortness of breath. No palpitations. No cough. She has been getting anxious and depressed because of these changes. She has been sleeping poorly. She denies any nausea, vomiting or abdominal pain. No back pain. No diarrhea constipation. She does complain of tingling in her fingers which is chronic related to carpal tunnel and some weakness in the hands but no other neurologic symptoms. There is concern the patient may be getting dehydrated. Also patient's rash was not improving with treatment with the prednisone. As such she present to the ED for evaluation. In the ED, she was hemodynamically stable. Showed white count 63993 with 15% eosinophils. ESR was 21. INR 1.2. BUN was 66 and creatinine 1.9. Last creatinine value listed here with was 0.6 in 2019. Urinalysis showed many squamous epithelial cells, 46 white cells and 3-5 red cells with 3+ Leukocyte Estrace. Rapid COVID test was negative. chest x-ray is clear. Arrangements were made for transfer but no beds available. Patient was admitted for this reason. In the emergency room she was treated with Rocephin for possible UTI, Solu-Medrol, IV fluids, Benadryl and Claritin. Review of Systems Review of Systems: All systems reviewed & are unremarkable except as noted in HPI and below PMFSH Past Medical History Medical History (Updated 11/29/20 @ 15:13 by Hudson Martel MD) Arthritis COPD (chronic obstructive pulmonary disease) History of left breast cancer Hyperlipemia Hypothyroidism (acquired) Surgical History Surgical History H/O arthroscopy of left knee H/O mastectomy History of appendectomy History of carotid endarterectomy History of tubal ligation Family History Family History (Updated 11/29/20 @ 15:03 by Hudson Martel MD) Mother , Age 97 - Old Age Heart attack Father , Age 67 of Unknown Cancer Colon cancer Heart disease Sibling Colon cancer Malignant neoplasm of prostate Other Breast cancer Malformation Social History Social History (Updated 11/29/20 @ 15:04 by Hudson Martel MD) Social History: Patient continues to smoke a quarter pack a day. She has smoked up to half a pack a day for 57 years. No alcohol or drug use. She lives in apartment in the lower level in her daughter's hous
[2020-11-29] MEDS: methylPREDNISolone SOD SUCC 125 MG VIAL 60 MG IV PUSH ×2 (14:34→21:57)
[2020-11-29] MEDS: LEVOTHYROXINE SODIUM 125 MCG TABLET PO (15:32)
[2020-11-29] MEDS: ASPIRIN 325 MG TABLET PO (16:43)
[2020-11-29 19:43] LABS: Hematocrit 26.8 % (37.0-47.0); Hemoglobin 7.9 g/dL (12.0-15.0); Mean Corpuscular HGB Conc 29.5 g/dl (32-36); Mean Corpuscular Hemoglobin 25.3 pg (26-34); Mean Corpuscular Volume 85.9 fl (80-100); Mean Platelet Volume 9.4 fl (7.4-10.4); Platelet Count Result 385 k/mm3 (150-375); Red Blood Count 3.12 M/mm3 (4.2-5.4); Red Cell Distribution Width 15.7 % (11.5-14.5); White Blood Count 19.4 K/mm3 (4.5-10.0)
[2020-11-29 19:57] LABS: Anion Gap 7 mmol/L (8-16); Blood Urea Nitrogen 41 mg/dL (7-17); Calcium 8.2 mg/dL (8.4-10.2); Carbon Dioxide 16 mmol/L (22-30); Chloride 111 mmol/L (98-107); Estimated CRCL calculation 28 ml/min; Estimated Glomerular Filt Rate 44; Glucose 113 mg/dL (65-110); Potassium 4.4 mmol/L (3.4-5.0); Sodium 134 mmol/L (137-145)
[2020-11-29 20:05] LABS: Band Neutrophils Percent 5 % (0-6); Eosinophils Absolute Manual 0.97 K/mm3 (0.02-0.5); Eosinophils Percent Manual 5 % (0-4); Lymphocytes Absolute Manual 0.19 K/mm3 (1.1-4.5); Neutrophils Absolute Manual 18.23 K/mm3 (1.7-7.2); Neutrophils Percent Manual 89 % (46-73); Total Cells Counted 100
[2020-11-29 20:06] LABS: Anisocytosis 2+ (NORMAL); Hypochromasia 1+ (NORMAL)
[2020-11-29] MEDS: FAMOTIDINE 20 MG TABLET PO (21:57)
[2020-11-30 06:00] VITALS: BP 114/54; PULSE 75; RESP 18; TEMP 36.4; O2SAT 97
[2020-11-30] MEDS: LEVOTHYROXINE SODIUM 125 MCG TABLET PO (06:08)
[2020-11-30] MEDS: methylPREDNISolone SOD SUCC 125 MG VIAL 60 MG IV PUSH (06:08)
[2020-11-30 06:40] LABS: Hematocrit 28.1 % (37.0-47.0); Mean Corpuscular HGB Conc 28.5 g/dl (32-36); Mean Corpuscular Hemoglobin 25.1 pg (26-34); Mean Corpuscular Volume 88.1 fl (80-100); Mean Platelet Volume 9.8 fl (7.4-10.4); Platelet Count Result 431 k/mm3 (150-375); Red Blood Count 3.19 M/mm3 (4.2-5.4); Red Cell Distribution Width 15.8 % (11.5-14.5); White Blood Count 19.2 K/mm3 (4.5-10.0)
[2020-11-30 07:09] LABS: Alanine Aminotransferase 12 U/L (4-35); Albumin Level 2.7 g/dL (3.5-5.1); Alkaline Phosphatase 88 U/L (38-126); Anion Gap 7 mmol/L (8-16); Aspartate Amino Transferase 14 U/L (14-36); Bilirubin,Total 0.2 mg/dL (0.2-1.3); Blood Urea Nitrogen 37 mg/dL (7-17); Calcium 8.2 mg/dL (8.4-10.2); Carbon Dioxide 14 mmol/L (22-30); Chloride 115 mmol/L (98-107); Estimated CRCL calculation 33 ml/min; Estimated Glomerular Filt Rate 54; Glucose 94 mg/dL (65-110); Phosphorus 3.4 mg/dL (2.5-4.5); Potassium 4.4 mmol/L (3.4-5.0); Sodium 136 mmol/L (137-145)
[2020-11-30] MEDS: DOXYCYCLINE HYCLATE 100 MG TABLET PO ×2 (08:00→20:42)
[2020-11-30] MEDS: FAMOTIDINE 20 MG TABLET PO ×2 (08:01→20:42)
[2020-11-30] MEDS: ASPIRIN 325 MG TABLET PO ×2 (08:02→17:41)
[2020-11-30 08:10] LABS: Thyroid Stimulating Hormone Reflex 0.774 uIU/mL (0.465-4.68)
[2020-11-30 08:16] LABS: Band Neutrophils Percent 2 % (0-6); Eosinophils Absolute Manual 0.38 K/mm3 (0.02-0.5); Eosinophils Percent Manual 2 % (0-4); Lymphocytes Absolute Manual 2.11 K/mm3 (1.1-4.5); Neutrophils Percent Manual 85 % (46-73); Total Cells Counted 100
[2020-11-30 08:18] LABS: Platelet Estimate Increased (Adequate)
--- NOTE | 2020-11-30 09:05 | PC.NURSE ---
patient transporting to ultrasound per w/c
--- NOTE | 2020-11-30 09:23 | PC.NURSE ---
patient returning to room from ultrasound
[2020-11-30 11:28] VITALS: BP 134/61
[2020-11-30] MEDS: diphenhydrAMINE HCl INJ 50 MG/ML VIAL 25 MG IV PUSH (11:39)
[2020-11-30] MEDS: SODIUM CHLORIDE 0.9% IV 500 ML IV CONT (11:39)
[2020-11-30 14:00] VITALS: BP 117/51; PULSE 66; RESP 24; TEMP 36.2; O2SAT 100
--- NOTE | 2020-11-30 14:10 | PM.IMPN ---
Progress Note: A&P Assessment and Plan (1) DRESS syndrome: Code(s): D72.12 - Drug rash with eosinophilia and systemic symptoms syndrome; T50.905A - Adverse effect of unspecified drugs, medicaments and biological substances, initial encounter Status: Acute Assessment and Plan: Patient most likely has developed dress syndrome related to the vancomycin. White count 70692 with a 15% eosinophilia. She has been started on Solu-Medrol and will continued for now. Airway does not appear to be compromised. She will be continued on Pepcid. I will start her on standing oral Benadryl as well. Continue close monitoring. Patient has been accepted at [facility] and awaiting bed. (2) Acute renal insufficiency: Code(s): N28.9 - Disorder of kidney and ureter, unspecified Status: Acute Assessment and Plan: Creatinine 1.9 on admission with BUN is 66. Bicarb was 15 but anion gap was normal. Potassium was normal. She had creatinine 0.6 almost 2 years ago but no other values listed. She was given IV fluids. Serum creatinine is 1.0 today. Will stop IV fluids. Ultrasound of the kidneys has been done with pending read from Radiology. Consider nephrology consult if condition deteriorates. Monitor urine output, Renal parameters and electrolytes. (3) Prosthetic joint infection: Code(s): T84.50XA - Infection and inflammatory reaction due to unspecified internal joint prosthesis, initial encounter Status: Acute Assessment and Plan: Patient had a prosthetic joint infection early October. Cultures were negative. Prosthetic joint was removed and spacer inserted. Patient was treated with vancomycin but this has since been switched to doxycycline by her doctor. Will continue doxycycline for now. (4) Hypertension: Qualifiers: Hypertension type: essential hypertension Qualified Code(s): I10 - Essential (primary) hypertension Code(s): I10 - Essential (primary) hypertension Status: Acute Assessment and Plan: Patient's blood pressure was reviewed since admission and has been low at times. Will hold amlodipine for now. Continue to monitor closely. (5) COPD (chronic obstructive pulmonary disease): Qualifiers: COPD type: emphysema Emphysema type: panlobular Qualified Code(s): J43.1 - Panlobular emphysema Code(s): J44.9 - Chronic obstructive pulmonary disease, unspecified Status: Chronic Assessment and Plan: Patient has a history of COPD. She continues to smoke. No wheezing on exam today. Continue nebulizer treatments to be used as needed. (6) Hypothyroidism (acquired): Code(s): E03.9 - Hypothyroidism, unspecified Status: Acute Assessment and Plan: patient has a history of hypothyroidism. Lid lag noted. Continue Synthroid. TSH is normal. (7) Tobacco abuse: Code(s): Z72.0 - Tobacco use Status: Acute Assessment and Plan: She was educated about the benefits smoking cessation. (8) DVT prophylaxis: Code(s): Z29.9 - Encounter for prophylactic measures, unspecified Status: Acute Assessment and Plan: SCDs; ASA continued as well She has been accepted to [facility]. She will be transferred to [facility] once a bed is available. I will stop ceftriaxone. Blood culture have been negative. Urine analysis was not very impressive and she does not have any urine tract infection symptoms. Subjective Date/time seen: 11/30/20 14:10 She was tearful and very emotional. She had episodes of agitation and shouted at me. She was upset as she is not being updated about her health condition. She is complaining of new rash formation in the right lower extremity. She denied have any significant pruritus chest pain shortness of breath cough wheezing nausea vomiting or abdominal pain. She has been accepted to [facility]
[2020-11-30] MEDS: methylPREDNISolone SOD SUCC 125 MG VIAL 80 MG IV PUSH ×2 (14:19→20:40)
[2020-11-30 17:23] LABS: Glucose Point of Care 145 mg/dl (65-105)
[2020-11-30] MEDS: diphenhydrAMINE HCl CAP 25 MG CAPSULE PO (17:41)
[2020-11-30 18:27] LABS: Eosinophil Urine None Seen % (None Seen)
--- NOTE | 2020-11-30 22:47 | PC.NURSE ---
Pt transferred to [place] to room 55 at 21:[address] [facility]
--- NOTE | 2020-12-11 21:39 | PM.DS ---
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 White count 22534 with a 15% eosinophilia. She has been started on Solu-Medrol and will continued for now. Airway does not appear to be compromised. She will be continued on Pepcid. I will start her on standing oral Benadryl as well. Continue close monitoring. Patient has been accepted at [facility] for transfer for further care. (2) Acute renal insufficiency: Code(s): N28.9 - Disorder of kidney and ureter, unspecified Status: Acute Assessment and Plan: Creatinine 1.9 on admission with BUN is 66. Bicarb was 15 but anion gap was normal. Potassium was normal. She had creatinine 0.6 almost 2 years ago but no other values listed. She was given IV fluids. Serum creatinine is 1.0 today. Will stop IV fluids. Ultrasound of the kidneys has been done with pending read from Radiology. Consider nephrology consult if condition deteriorates. Monitor urine output, Renal parameters and electrolytes. (3) Prosthetic joint infection: Code(s): T84.50XA - Infection and inflammatory reaction due to unspecified internal joint prosthesis, initial encounter Status: Acute Assessment and Plan: Patient had a prosthetic joint infection early October. Cultures were negative. Prosthetic joint was removed and spacer inserted. Patient was treated with vancomycin but this has since been switched to doxycycline by her doctor. Will continue doxycycline for now. (4) Hypertension: Qualifiers: Hypertension type: essential hypertension Qualified Code(s): I10 - Essential (primary) hypertension Code(s): I10 - Essential (primary) hypertension Status: Acute Assessment and Plan: Patient's blood pressure was reviewed since admission and has been low at times. Will hold amlodipine for now. Continue to monitor closely. (5) COPD (chronic obstructive pulmonary disease): Qualifiers: COPD type: emphysema Emphysema type: panlobular Qualified Code(s): J43.1 - Panlobular emphysema Code(s): J44.9 - Chronic obstructive pulmonary disease, unspecified Status: Chronic Assessment and Plan: Patient has a history of COPD. She continues to smoke. No wheezing on exam today. Continue nebulizer treatments to be used as needed. (6) Hypothyroidism (acquired): Code(s): E03.9 - Hypothyroidism, unspecified Status: Acute Assessment and Plan: patient has a history of hypothyroidism. Lid lag noted. Continue Synthroid. TSH is normal. (7) Tobacco abuse: Code(s): Z72.0 - Tobacco use Status: Acute Assessment and Plan: She was educated about the benefits smoking cessation. (8) DVT prophylaxis: Code(s): Z29.9 - Encounter for prophylactic measures, unspecified Status: Acute Assessment and Plan: SCDs; ASA continued as well She has been accepted to [facility]. She has a bed now and will be transferred for further care. I will stop ceftriaxone. Blood culture have been negative. Urine analysis was not very impressive and she does not have any urine tract infection symptoms. DS: Summary Hospital Course Hospital Course: as above Time Spent with Patient Time attestation: Total time spent providing and/or coordinating discharge services: 35 minutes Exam Narrative: AF 98.0 115/50 79 20 99% ra Gen - well-nourished, well-developed female in no acute respiratory distress who is nontoxic-appearing lying se
--- NOTE | 2020-12-17 16:47 | PM.TDS ---
Transfer Discharge Sum: Prov Provider Date of admission: 11/30/20 16:53 Primary care physician: Pardeep Gil MD Admitting clinician: Roxane Recinos DO DS: Admitting Diagnosis Admitting Diagnosis Dress syndrome Septic arthritis DS: Discharge Diagnosis Discharge Diagnosis (1) DRESS syndrome: Code(s): D72.12 - Drug rash with eosinophilia and systemic symptoms syndrome; T50.905A - Adverse effect of unspecified drugs, medicaments and biological substances, initial encounter Status: Acute Assessment and Plan: Patient most likely has developed dress syndrome related to the vancomycin. White count 19733 with a 15% eosinophilia. She has been started on Solu-Medrol and will continued for now. Airway does not appear to be compromised. She will be continued on Pepcid. I will start her on standing oral Benadryl as well. Continue close monitoring. Patient has been accepted at [facility] for transfer for further care. (2) Acute renal insufficiency: Code(s): N28.9 - Disorder of kidney and ureter, unspecified Status: Acute Assessment and Plan: Creatinine 1.9 on admission with BUN is 66. Bicarb was 15 but anion gap was normal. Potassium was normal. She had creatinine 0.6 almost 2 years ago but no other values listed. She was given IV fluids. Serum creatinine is 1.0 today. Will stop IV fluids. Ultrasound of the kidneys has been done with pending read from Radiology. Consider nephrology consult if condition deteriorates. Monitor urine output, Renal parameters and electrolytes. (3) Prosthetic joint infection: Code(s): T84.50XA - Infection and inflammatory reaction due to unspecified internal joint prosthesis, initial encounter Status: Acute Assessment and Plan: Patient had a prosthetic joint infection early October. Cultures were negative. Prosthetic joint was removed and spacer inserted. Patient was treated with vancomycin but this has since been switched to doxycycline by her doctor. Will continue doxycycline for now. (4) Hypertension: Qualifiers: Hypertension type: essential hypertension Qualified Code(s): I10 - Essential (primary) hypertension Code(s): I10 - Essential (primary) hypertension Status: Acute Assessment and Plan: Patient's blood pressure was reviewed since admission and has been low at times. Will hold amlodipine for now. Continue to monitor closely. (5) COPD (chronic obstructive pulmonary disease): Qualifiers: COPD type: emphysema Emphysema type: panlobular Qualified Code(s): J43.1 - Panlobular emphysema Code(s): J44.9 - Chronic obstructive pulmonary disease, unspecified Status: Chronic Assessment and Plan: Patient has a history of COPD. She continues to smoke. No wheezing on exam today. Continue nebulizer treatments to be used as needed. (6) Hypothyroidism (acquired): Code(s): E03.9 - Hypothyroidism, unspecified Status: Acute Assessment and Plan: patient has a history of hypothyroidism. Lid lag noted. Continue Synthroid. TSH is normal. (7) Tobacco abuse: Code(s): Z72.0 - Tobacco use Status: Acute Assessment and Plan: She was educated about the benefits smoking cessation. (8) DVT prophylaxis: Code(s): Z29.9 - Encounter for prophylactic measures, unspecified Status: Acute Assessment and Plan: SCDs; ASA continued as well She has been accepted to [facility]. She has a bed now and will be transferred for further care. I will stop ceftriaxone. Blood culture have been negative. Urine analysis was not very impressive and she does not have any urine tract infection symptoms. Transfer Discharge Sum: Med Medications Active and Home Medications: Home Medications [id number] [Excedrin Extra Strength] 1 tablet PO Q4-6H PRN 09/28/19 [History
== END 2020-11-30 21:25 | disposition short-term general hospital (02) | DRG 815 ==
LOC: ANHED 11-29 04:16 → ANH3MEDSUR 11-29 05:13
PROVIDERS: Emergency Medicine; Admitting Provider Internal Medicine; Emergency Provider Emergency Medicine; PCP Internal Medicine; Visit Provider Internal Medicine
DX: D72.12 Drug rash with eosinophilia and systemic symptoms syndrome (principal); T84.54XA Infection and inflammatory reaction due to internal left knee prosthesis, initial encounter; T36.8X5A Adverse effect of other systemic antibiotics, initial encounter; N28.9 Disorder of kidney and ureter, unspecified; Z20.822 Contact with and (suspected) exposure to COVID-19; I10 Essential (primary) hypertension; J43.1 Panlobular emphysema; E03.9 Hypothyroidism, unspecified; E78.5 Hyperlipidemia, unspecified; F17.210 Nicotine dependence, cigarettes, uncomplicated; Z66 Do not resuscitate; Z79.82 Long term (current) use of aspirin; Z79.899 Other long term (current) drug therapy; Z85.3 Personal history of malignant neoplasm of breast
CPT/HCPCS: 36415; 71045; 76775; 80048; 80053; 81001; 82948; 83605; 83735; 84100; 84443; 85025; 85610; 85652; 85730; 85999; 86140; 87040; 87426; 96361; 96365; 96366; 96375; 96376; 99285; A9270; C9803; G0378; J0696; J1200; J2920; J2930; J7030; J7040

== ENCOUNTER 2021-06-07 20:31 | Emergency (ER) | payer MEDICARE, SELFPAY ==
[2021-06-07] VITALS (8 sets, daily range): BP systolic 199; BP diastolic 82; PULSE 89–103; RESP 20–32; TEMP 36.6; O2SAT 91–97
--- NOTE | ~2021-06-07 | XR_ITS ---
EXAMINATION: XR chest 1V portable INDICATION: Shortness of breath TECHNIQUE: Portable AP chest at 2209 hours COMPARISON: 11/28/2020 FINDINGS: The lungs are hyperinflated but free of acute opacities. There is no pleural effusion or pn eumothorax. The cardiomediastinal silhouette is normal. IMPRESSION: 1. No acute cardiopulmonary abnormality. Reviewed, dictated and finalized at location F. WELL DRILLER
--- NOTE | 2021-06-07 20:31 | ECG_ITS ---
Measurements Intervals [place] Rate: 99 P: 73 VT: 156 QRS: 61 QRSD: 97 T: 48 QT: 321 QTc: 412 Interpretive Statements SINUS RHYTHM LEFT VENTRICULAR HYPERTROPHY AND ST-T CHANGE MINIMAL Q WAVES- ANTEROLATERAL LEADS ST-T WAVE ABNORMALITY IN ANTEROLAT/INF LEADS- CONSIDER ISCHEMIA BASELINE ARTIFACT- I, II, AVR, AVL, V1, V4-V6 ABNORMAL ECG Electronically Signed On 06-08-2021 7:06:07 SAND BUFFER by Vasquez Pitts D.O.
--- NOTE | 2021-06-07 20:45 | ED.GENADULT ---
HPI - General Adult General Chief complaint: Shortness of Breath/Dyspnea Stated complaint: shortness of breath Time Seen by Provider: 06/07/21 20:40 History of Present Illness HPI narrative: Patient is a 75-year-old female who presents the emergency department with chief complaint of shortness of breath. Patient reports she has history of COPD reports over the last 2 days she has been having increasing shortness of breath. Patient states that little bit of a runny nose denies fever reports has been coughing vomiting with cough a little bit of sputum patient states that she had no fever reports that she has had the COVID-19 vaccination and has had 3 doses totally. Patient reports this feels as though her COPD is flared up and reports has been using her inhaler/nebulizer and has not had improvement with using them. Related Data Allergies Allergy/AdvReac Type Severity Reaction Status Date / Time codeine AdvReac Severe UNABLE TO Verified 06/07/21 20:35 MOVE/FUNCTION procaine [From Novocain] AdvReac Severe SEVERE Verified 06/07/21 20:35 HEADACHE Review of Systems Review of Systems: A 10 system review of systems was completed on the patient and is negative except for what is stated in the HPI. Nursing and ancillary documentation was reviewed. [facility] Past Medical History Medical History (Updated 06/07/21 @ 23:36 by Hudson Atkins MD) Arthritis COPD (chronic obstructive pulmonary disease) History of left breast cancer Hyperlipemia Hypothyroidism (acquired) Surgical History Surgical History H/O arthroscopy of left knee H/O mastectomy History of appendectomy History of carotid endarterectomy History of tubal ligation Family History Family History Mother , Age 97 - Old Age Heart attack Father , Age 67 of Unknown Cancer Colon cancer Heart disease Sibling Colon cancer Malignant neoplasm of prostate Other Breast cancer Malformation Social History Social History Social History: Patient continues to smoke a quarter pack a day. She has smoked up to half a pack a day for 57 years. No alcohol or drug use. She lives in apartment in the lower level in her daughter's house. The apartment is a walk out. Patient is a DNR per patient and family wishes. The daughter would be the individual who would make medical decisions for her if she is unable. Smoking packs per day: 0.5 Smoking cigarettes per day: 10.0 Years smoked: 50 Smoking pack-years: 25.00 Smoking status: Light tobacco smoker Tobacco type: cigarettes (per pt, a pack of cigs last 3-4 days) Second hand tobacco smoke exposure: No Alcohol intake: former Substance use: former Gender identity (if verbalized by the patient): Female Spiritual care concerns: No Exam Narrative: GENERAL: Well-appearing, well-nourished, and in no acute distress. HEAD: Normocephalic, atraumatic. EYES: PERRLA and EOMI. ENT: Nares clear, no rhinorrhea or epistaxis. Mucous membranes moist. NECK: Supple. CHEST: Wheezing to auscultation. No respiratory distress. HEART: Regular rate and rhythm. No murmur heard. Normal peripheral pulses. ABDOMEN: Soft, nontender, nondistended, normal active bowel sounds. EXTREMITIES: Normal range of motion. No edema. SKIN: Warm, dry, no rash. NEURO: No focal deficits. Alert and oriented x3. PSYCH: Normal mood and affect. Course Course Emergency Course: Patient is feeling better after breathing treatments and IV steroids. In discussion with the patient she would like to try outpatient therapy. Vital Signs Vital signs: Vital Signs Temperature 36.6 C 06/07/21 20:32 Pulse Rate 103 H 06/07/21 20:32 Respiratory Rate 20 06/07/21 20:32 Blood Pressure 199/82 H 06/07/21 20:32 Pulse Ox
[2021-06-07] MEDS: methylPREDNISolone SOD SUCC 125 MG VIAL IV PUSH (20:50)
[2021-06-07] MEDS: ALBUTEROL SULFATE NEB 2.5 MG/0.5 ML INH 5 MG INHALATION (20:58)
[2021-06-07] MEDS: IPRATROPIUM BR 0.02% INH SOLN 0.5 MG/2.5 ML VIAL INHALATION (20:58)
[2021-06-07 21:09] LABS: Base Excess ABG -6.7 mEq/l (+/-2.0); Fractional Inspired Oxygen 21 %; HCO3 ABG 18.4 mEq/l (22.0-26.0); Oxygen Content ABG 15.2 %vol (16.0-22.0); Oxygen Saturation ABG 89.7 % (95.0-100.0); Oxyhemoglobin 90.6 % THb (90.0-100.0); PCO2 ABG 35.5 mmHg (35.0-45.0); PO2 ABG 60.2 mmHg (80.0-100.0); PO2 FiO2 Ratio Arterial Blood 2.87 %; Total Hemoglobin 11.9 g/dL (12.0-18.0); pH ABG 7.333 (7.350-7.450)
[2021-06-07 21:10] LABS: Device ROOM AIR; Modified Allen's Test Pass; Site Drawn RIGHT RADIAL
[2021-06-07 21:29] LABS: Basophils Absolute Auto 0.1 K/mm3 (0.0-0.1); Basophils Percent Auto 1.1 % (0.2-1.2); Eosinophils Absolute Auto 0.2 K/mm3 (0-0.3); Eosinophils Percent Auto 2.3 % (0-4.4); Hemoglobin 11.5 g/dL (12.0-15.0); Immature Granulocyte Absolute 0.03 K/mm3 (0.00-0.031); Immature Granulocyte Percent A 0.3 % (0-0.5); Lymphocytes Absolute Auto 1.49 K/mm3 (0.9-3.2); Lymphocytes Percent Auto 14.2 % (18.3-44.2); Mean Corpuscular HGB Conc 30.3 g/dl (32-36); Mean Corpuscular Hemoglobin 26.9 pg (26-34); Mean Corpuscular Volume 88.8 fl (80-100); Mean Platelet Volume 9.7 fl (7.4-10.4); Monocytes Absolute Auto 0.7 K/mm3 (0.1-0.6); Monocytes Percent Auto 6.9 % (2.6-8.5); Neutrophils Absolute Auto 7.9 K/mm3 (1.3-6.7); Neutrophils Percent Auto 75.2 % (45.5-73.1); Platelet Count Result 287 k/mm3 (150-375); Red Blood Count 4.28 M/mm3 (4.2-5.4); Red Cell Distribution Width 17.2 % (11.5-14.5); White Blood Count 10.5 K/mm3 (4.5-10.0)
[2021-06-07 21:43] LABS: Alanine Aminotransferase 22 U/L (4-35); Albumin Level 4.4 g/dL (3.5-5.1); Alkaline Phosphatase 153 U/L (38-126); Anion Gap 11 mmol/L (8-16); Aspartate Amino Transferase 33 U/L (14-36); Bilirubin,Total 0.2 mg/dL (0.2-1.3); Blood Urea Nitrogen 21 mg/dL (7-17); Calcium 9.4 mg/dL (8.4-10.2); Carbon Dioxide 20 mmol/L (22-30); Chloride 109 mmol/L (98-107); Estimated CRCL calculation 36 ml/min; Estimated Glomerular Filt Rate > 60; Glucose 141 mg/dL (65-110); Potassium 3.6 mmol/L (3.4-5.0); Sodium 140 mmol/L (137-145)
[2021-06-07 21:54] LABS: NT Pro B Type Natriuretic Pept 129 pg/mL (5-100); Troponin I < 0.012 ng/mL (0.000-0.034)
[2021-06-07 22:05] LABS: SARS-CoV-2 RNA PCR Negative
--- NOTE | 2021-06-07 23:21 | PC.NURSE ---
Patient ambulated to the end of the hallway with RN. Oxygen saturations 93 while walking, back to stretcher became anxious. Oxygen saturations 90-91% on RA once back on the stretcher.
[2021-06-08] MEDS: DOXYCYCLINE HYCLATE 100 MG TABLET PO (00:05)
[2021-06-08 00:14] VITALS: PULSE 98; RESP 24; O2SAT 95
== END 2021-06-08 00:15 | disposition home or self-care (01) ==
PROVIDERS: Emergency Provider Emergency Medicine; PCP Internal Medicine
DX: J44.1 Chronic obstructive pulmonary disease with (acute) exacerbation (principal); Z20.822 Contact with and (suspected) exposure to COVID-19; M19.90 Unspecified osteoarthritis, unspecified site; E78.5 Hyperlipidemia, unspecified; E03.9 Hypothyroidism, unspecified; Z85.3 Personal history of malignant neoplasm of breast; Z90.10 Acquired absence of unspecified breast and nipple; F17.210 Nicotine dependence, cigarettes, uncomplicated
CPT/HCPCS: 36415; 36600; 71045; 80053; 82805; 83880; 84484; 85025; 93005; 94640; 96374; 99284; A9270; C9803; J2930; U0003; U0005

== ENCOUNTER 2022-04-13 18:07 | Emergency (ER) | payer MEDICARE, SELFPAY ==
--- NOTE | ~2022-04-13 | CT_ITS ---
EXAMINATION: CT brain wo con DATE: 04/13/2022 19:14 INDICATION: fall . TECHNIQUE: Computed tomography (CT) of the head was performed without intravenous contrast. The mA wa s adjusted according to patient size. Iterative reconstruction technique was employed. The dose-lengt h product was 605.33 mGy-cm. COMPARISON: 12/07/2019 FINDINGS: No acute intracranial hemorrhage or extra-axial fluid collection. No hydrocephalus, mass, or herniation. No acute ischemic infarct. Unremarkable dural venous sinus attenuation. No acute osseous abnormality. The aerated spaces are clear. Mild atrophy and chronic white matter change. Atherosclerotic intracranial calcification. Bilateral l ens replacements. IMPRESSION: No acute intracranial process. Reviewed, dictated and finalized at location K. OVEMENT AUDITOR
--- NOTE | ~2022-04-13 | CT_ITS ---
EXAMINATION: CT cervical spine wo con DATE: 04/13/2022 19:14 INDICATION: fall TECHNIQUE: Computed tomography (CT) of the cervical spine was performed without intravenous contrast. Automated exposure control and iterative reconstruction technique were employed. The dose-length pro duct was 128.25 mGy-cm. COMPARISON: None FINDINGS: Vertebral Body Alignment: Intact. Grade 1 anterolisthesis at C4-5, presumably on a degenerative basis . Craniocervical and atlantoaxial alignment: Moderate degenerative change. Alignment intact. Osseous structures/fracture: Severe osteopenia. No evidence of a lytic or blastic process in the visu alized spine. No evidence of acute fracture. Fused base of skull-atlas articulation. Multilevel vert ebral body and facet fusions. Cervical soft tissues: The paraspinal soft tissues planes are maintained. Coarse subcentimeter calcif ication in the left thyroid lobe. Atherosclerotic calcifications in the aortic arch and bilateral car otid bifurcations. Degenerative changes: Multilevel degenerative disc disease, severe at C5-6 and C6-7. Severe bilateral neural foraminal narrowing at C6-7. No severe central canal narrowing. IMPRESSION: No acute fracture or traumatic malalignment in the cervical spine. Reviewed, dictated and finalized at location K. ND PLANNING ANALYST
--- NOTE | ~2022-04-13 | XR_ITS ---
EXAM: XR wrist RT min 3V DATE: 04/13/2022 19:27 HISTORY: GROUND LEVEL FALL. PAIN TO ENTIRE RT WRIST . COMPARISON: 06/19/2019. FINDINGS: Severely decreased mineralization. No fracture or dislocation. No lytic or blastic lesion. Joint spaces are maintained. Severe erosive deformity of the radiocarpal articulation. Widening of t he distal radial ulnar joint. Erosion of the distal ulna and possible pseudarthrosis between the dist al ulna and triquetral bone. Soft tissue swelling over the dorsal wrist. 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 No definite acute fracture detected. Presumed chronic widening of the distal radial ulnar joint. Reviewed, dictated and finalized at location K. MEAT PROCESSOR IMPRESSION: Exam limited by severe chronic inflammatory arthropathy of the wris t and severe osteopenia. No definite acute fracture detected. Presumed chronic widening of the distal radial ulnar joint.
--- NOTE | ~2022-04-13 | XR_ITS ---
EXAM: XR ankle RT min 3V DATE: 04/13/2022 19:27 HISTORY: GROUND LEVEL FALL. CO RIGHT ANKLE PAIN, LIMITED ROM . COMPARISON: None available. FINDINGS: Decreased mineralization. Curvilinear ossific fragment superior to the talonavicular joint in the lateral view. No lytic or blastic lesion. Joint spaces are maintained. No erosion or perioste al change. Soft tissues within normal limits. IMPRESSION: Talonavicular capsular avulsion. Reviewed, dictated and finalized at location K. S
[2022-04-13 18:49] VITALS: BP 126/62; PULSE 76; RESP 18; TEMP 36.9; O2SAT 100
--- NOTE | 2022-04-13 21:39 | ED.FALL ---
HPI - Fall General Chief Complaint: Fall Stated Complaint: glf - rt wrist, hand, head Time Seen by Provider: 04/13/22 20:46 History of Present Illness HPI Narrative: 76-year-old female presents to the emergency room for injury sustained in a ground-level fall. Patient states that she was sitting down when she abruptly stood up and lost her footing, twisting her right foot and falling. Patient states when she fell she struck the right side of her head on the bookcase, and then hit her right wrist on a book and. Patient denies LOC or altered mental status. Was unable to ambulate following the injury. Related Data Allergies Allergy/AdvReac Type Severity Reaction Status Date / Time vancomycin Allergy Severe Anaphylaxis Verified 04/13/22 20:55 codeine AdvReac Severe UNABLE TO Verified 04/13/22 20:55 MOVE/FUNCTION procaine [From Novocain] AdvReac Severe SEVERE Verified 04/13/22 20:55 HEADACHE Review of Systems Review of Systems: CONSTITUTIONAL: Denies fever, chills, or sweats. EYES: Denies visual changes, redness, or discharge. ENT: Denies rhinorrhea, congestion, sore throat, or otalgia. CARDIOVASCULAR: Denies chest pain, palpitations, or edema. RESPIRATORY: Denies cough or dyspnea. GASTROINTESTINAL: Denies abdominal pain, nausea, vomiting, or diarrhea. GENITOURINARY: Denies dysuria or hematuria. SKIN: Denies rash or itching. MUSCULOSKELETAL: Reports right wrist, right foot pain NEUROLOGIC: Denies headache, numbness, dizziness, or weakness. PSYCHIATRIC: Denies anxiety or depression. [facility] Past Medical History Medical History Arthritis COPD (chronic obstructive pulmonary disease) History of left breast cancer Hyperlipemia Hypothyroidism (acquired) Surgical History Surgical History H/O arthroscopy of left knee H/O mastectomy History of appendectomy History of carotid endarterectomy History of tubal ligation Family History Family History Mother , Age 97 - Old Age Heart attack Father , Age 67 of Unknown Cancer Colon cancer Heart disease Sibling Colon cancer Malignant neoplasm of prostate Other Breast cancer Malformation Social History Social History Social History: Patient continues to smoke a quarter pack a day. She has smoked up to half a pack a day for 57 years. No alcohol or drug use. She lives in apartment in the lower level in her daughter's house. The apartment is a walk out. Patient is a DNR per patient and family wishes. The daughter would be the individual who would make medical decisions for her if she is unable. Smoking packs per day: 0.5 Smoking cigarettes per day: 10.0 Years smoked: 50 Smoking pack-years: 25.00 Smoking status: Light tobacco smoker Tobacco type: cigarettes (per pt, a pack of cigs last 3-4 days) Second hand tobacco smoke exposure: No Alcohol intake: former Substance use: former Gender identity (if verbalized by the patient): Female Spiritual care concerns: No Exam Narrative: GENERAL: Well-appearing, well-nourished, no physical limitations, and in no acute distress. HEAD: Normocephalic, atraumatic. EYES: Conjunctivae normal, PERRLA and EOMI. CHEST: Clear to auscultation. No respiratory distress. No wheezes rales or rhonchi. HEART: Regular rate and rhythm. No murmur heard. Normal peripheral pulses. BACK: No midline cervical/thoracic/lumbar tenderness, step-offs, bony abnormality; FROM EXTREMITIES: RLE: +TTP to the dorsal surface of the midfoot, NO STS, No ecchymosis. Neurovascular is intact distally RUE: +TTP to the dorsal radiocarpal joint, no soft tissue swelling, no ecchymosis, full range of motion. Abrasion noted to the base of the thumb SKIN: Warm, dry, no rash. No noted wounds
[2022-04-13] MEDS: IBUPROFEN 600 MG TABLET PO (22:01)
== END 2022-04-13 22:16 | disposition home or self-care (01) ==
PROVIDERS: Emergency Provider Nurse Practitioner Family; PCP Family Medicine
DX: S92.901A Unspecified fracture of right foot, initial encounter for closed fracture (principal); S60.221A Contusion of right hand, initial encounter; S09.90XA Unspecified injury of head, initial encounter; J44.9 Chronic obstructive pulmonary disease, unspecified; E78.5 Hyperlipidemia, unspecified; E03.9 Hypothyroidism, unspecified; Z85.3 Personal history of malignant neoplasm of breast; Z90.10 Acquired absence of unspecified breast and nipple; F17.210 Nicotine dependence, cigarettes, uncomplicated; Z66 Do not resuscitate; X50.9XXA Other and unspecified overexertion or strenuous movements or postures, initial encounter; M12.9 Arthropathy, unspecified; M85.831 Other specified disorders of bone density and structure, right forearm; W01.190A Fall on same level from slipping, tripping and stumbling with subsequent striking against furniture, initial encounter
CPT/HCPCS: 29515; 70450; 72125; 73110; 73610; 99284; A9270

== ENCOUNTER 2022-05-05 14:12 | Outpatient (CLI) | payer MEDICARE, SELFPAY ==
[2022-05-05 18:48] LABS: Alanine Aminotransferase 16 U/L (6-35); Albumin Level 4.4 g/dL (3.5-5.1); Alkaline Phosphatase 108 U/L (38-126); Anion Gap 7 mmol/L (8-16); Aspartate Amino Transferase 31 U/L (14-36); Bilirubin,Total 0.3 mg/dL (0.2-1.3); Blood Urea Nitrogen 39 mg/dL (7-17); Calcium 9.5 mg/dL (8.4-10.2); Carbon Dioxide 22 mmol/L (22-30); Chloride 111 mmol/L (98-107); Cholesterol 190 mg/dL (0-200); Estimated Glomerular Filt Rate > 60; Glucose 90 mg/dL (65-110); HDL Direct 43 mg/dL; Potassium 4.2 mmol/L (3.4-5.0); Sodium 140 mmol/L (137-145); Triglycerides 141 mg/dL (<150)
[2022-05-05 18:59] LABS: LDL Cholesterol Direct 95 mg/dL
[2022-05-05 19:40] LABS: Thyroid Stimulating Hormone Reflex 0.027 uIU/mL (0.465-4.68)
[2022-05-05 22:32] LABS: Free T4 Free Thyroxine Reflex 2.02 ng/dL (0.78-2.19)
[2022-05-05 23:21] LABS: Total Triiodothyronine (T3) 0.99 NG/ML (0.97-1.69)
== END 2022-05-05 14:13 | disposition home or self-care (01) ==
LOC: ANHGOSHLAB 14:13
PROVIDERS: PCP Family Medicine; Visit Provider Family Medicine
DX: E78.5 Hyperlipidemia, unspecified (principal); I10 Essential (primary) hypertension; E03.9 Hypothyroidism, unspecified
CPT/HCPCS: 36415; 80053; 80061; 84439; 84443; 84480

== ENCOUNTER 2022-07-07 12:37 | Outpatient (CLI) | payer MEDICARE, SELFPAY ==
[2022-07-07 19:46] LABS: Thyroid Stimulating Hormone Reflex 0.125 uIU/mL (0.465-4.68)
[2022-07-07 20:20] LABS: Free T4 Free Thyroxine Reflex 2.07 ng/dL (0.78-2.19)
[2022-07-07 21:01] LABS: Total Triiodothyronine (T3) 0.94 NG/ML (0.97-1.69)
== END 2022-07-07 12:38 | disposition home or self-care (01) ==
LOC: ANHGOSHLAB 12:39
PROVIDERS: PCP Family Medicine; Visit Provider Family Medicine
DX: E03.9 Hypothyroidism, unspecified (principal); Z13.29 Encounter for screening for other suspected endocrine disorder
CPT/HCPCS: 36415; 84439; 84443; 84480